=== PATIENT | male | born 1990 | race Caucasian/White ===

== ENCOUNTER → 2017-07-09 | Outpatient (CLI) | payer OTHER ==
[~2017-07-09] MED LIST: GENT.3OPSA OD; HYDACE5 PO
== END | disposition home or self-care (01) ==
LOC: LAB EV 18:43
DX: L03.116 Cellulitis of left lower limb (principal)
CPT/HCPCS: 87070; 87075; 87147; 87205

== ENCOUNTER 2021-02-05 19:00 | Emergency (ER) | payer OTHER ==
[~2021-02-05] VITALS: Ht 177.8 cm; Wt 140.6 kg
== END 2021-02-05 21:18 | disposition home or self-care (01) ==
LOC: ER 19:00
DX: S92.131A Displaced fracture of posterior process of right talus, initial encounter for closed fracture (principal); S93.401A Sprain of unspecified ligament of right ankle, initial encounter; F17.210 Nicotine dependence, cigarettes, uncomplicated; X58.XXXA Exposure to other specified factors, initial encounter
CPT/HCPCS: 29505; 73610; 99283-25; A9270; J1885